=== PATIENT | male | born 1985 | race Caucasian/White ===

== ENCOUNTER 2022-06-11 08:56 | Emergency (ER) | payer BC ==
[~2022-06-11] VITALS: Ht 167.6 cm; Wt 84.0 kg
[2022-06-11] MEDS ORDERED: SULF1TAB48 PO (09:24)
[2022-06-11] MEDS ORDERED: CEPH500T PO (09:24)
[2022-06-11 09:44] VITALS: BP 201/112
== END 2022-06-11 09:46 | disposition home or self-care (01) ==
LOC: ER 08:56
DX: L03.312 Cellulitis of back [any part except buttock and flank] (principal)
CPT/HCPCS: 99281

== ENCOUNTER 2022-11-18 09:05 | Emergency (ER) | payer BC ==
[~2022-11-18] VITALS: Ht 167.6 cm; Wt 86.0 kg
[~2022-11-18 09:05] MED LIST: CEPH500T PO; SULF1TAB48 PO
[2022-11-18 10:08] VITALS: BP 198/136
[2022-11-18] MEDS ORDERED: CEPH500T MT (12:08)
[2022-11-18] MEDS ORDERED: SULF1TAB48 MT (12:08)
[2022-11-18] MEDS ORDERED: BACITRACIN ZINC OINT UDPKT TOP ONE (12:15)
[2022-11-18] MEDS ORDERED: SULFAMETHOXAZOLE/TRIMETHOPRIM 400/80MG TAB PO ONE (12:15)
[2022-11-18] MEDS ORDERED: CEPHALEXIN 250MG CAPSULE PO ONE (12:15)
== END 2022-11-18 12:29 | disposition home or self-care (01) ==
LOC: ER 09:05
DX: L03.115 Cellulitis of right lower limb (principal)
CPT/HCPCS: 99283

== ENCOUNTER 2023-02-28 13:12 | Emergency (ER) | payer BC ==
[~2023-02-28] VITALS: Ht 167.6 cm; Wt 88.0 kg
[~2023-02-28 13:12] MED LIST changes: +CEPH500T MT; +SULF1TAB48 MT
[2023-02-28 13:18] VITALS: BP 210/126; PULSE 87; RESP 20; O2SAT 99
[2023-02-28] MEDS ORDERED: ACETAMINOPHEN 325MG TABLET PO ONE (13:45)
[2023-02-28 14:22] VITALS: TEMP 98.5
[2023-02-28] MEDS ORDERED: NAPR220C61 MT (15:37)
== END 2023-02-28 15:09 | disposition home or self-care (01) ==
LOC: ER 13:12
DX: S06.0X0A Concussion without loss of consciousness, initial encounter (principal); S50.01XA Contusion of right elbow, initial encounter; S80.01XA Contusion of right knee, initial encounter; Y08.89XA Assault by other specified means, initial encounter; Y93.89 Activity, other specified; Y92.89 Other specified places as the place of occurrence of the external cause; Y99.8 Other external cause status
CPT/HCPCS: 73080; 73560; 99284